=== PATIENT | male | born 1960 | race Caucasian/White ===

== ENCOUNTER 2017-08-15 14:44 | Emergency (ER) | payer OTHER ==
[2017-08-15 14:53] VITALS: TEMP 97.7
[2017-08-15] MEDS ORDERED: TDAP ADULT 0.5 ML INJ (BOOSTRIX) IM ONE (16:45)
--- NOTE | 2017-08-15 17:03 | EDPHY ---
H & P Stated Complaint: Multiple lacerations to left hand Source: Patient Exam Limitations: No limitations - Personal History Current Tetanus/Diphtheria Vaccine: No Current Tetanus Diphtheria and Acellular Pertussis (TDAP): No - Medical/Surgical History Hx Asthma: No Hx Chronic Respiratory Disease: No Hx Diabetes: No Hx Cardiac Disease: No Hx Renal Disease: No Hx Cirrhosis: No Hx Alcoholism: No Hx HIV/AIDS: No Hx Splenectomy or Spleen Trauma: No Other PMH: PMH: a-fib w/ ablation. - Social History Smoking Status: Never smoked Time Seen by Provider: 08/15/17 17:03 HPI/ROS: HPI: This is a 57-year-old male presents with Chief Complaint: Multiple lacerations to left hand Location: Left hand Quality: Laceration Duration: Prior to arrival Signs and Symptoms: + bleeding, no radiation, no numbness, no weakness, no tingling, no decreased range of motion, + swelling, + pain Timing: Acute Severity: 05/08 Context: Patient is right-hand dominant, was at work trying to clean a machine when he stuck his hand inside and the knife struck his left hand several times injuring several of his fingers. He felt immediate pain and started to bleed. He applied direct pressure which mildly relieve the bleeding. He is unsure of his last tetanus shot. He denies any paresthesias, change of skin color. He does report that there is increased pain with any use of his left hand and movement. Patient has a history of AFib with ablation and is not taking any blood thinners. Modifying Factors: Direct pressure Comment: ROS: see HPI Constitutional: No fever, no chills, no weight loss Eyes: No blurred vision Respiratory: No shortness of breath, no cough Cardiovascular: No chest pain Gastrointestinal: No nausea, no vomiting no diarrhea Genitourinary: No dysuria Extremities: No myalgias Neurologic: No weakness, no numbness Skin: No rashes Hematologic: No bruising, no bleeding MEDICAL/SURGICAL/SOCIAL HISTORY: Medical history: AFib Surgical history: Denies Social history: Employed CONSTITUTIONAL: Adult white male, awake and alert, no obvious distress HEENT: Atraumatic and normocephalic, PERRL, EOMI. Tympanic membranes clear. Oropharynx clear, no exudate and moist pink mucosa. Airway patent. No lymphadenopathy. No meningismus. Cardiovascular: Normal S1/S2, regular rate, regular rhythm, without murmur rub or gallop. PULMONARY/CHEST: Symmetrical and nontender. Clear to auscultation bilaterally. Good air movement. No accessory muscle usage. ABDOMEN: Soft, nondistended, nontender, no rebound, no guarding, no peritoneal signs, no masses or organomegaly. No CVAT. EXTREMITIES: 2/2 radial pulses, left hand: Left thumb shows 1 cm vertical incision, 2nd digit shows 2.5 cm v-shaped incision, 3rd digit shows 3.5 cm irregular complex avulsed type laceration. DIP/PIP flexion and extension and light touch sensation intact. strength 5/5, no deformities, no clubbing, no cyanosis or edema. NEUROLOGICAL: no focal neuro deficits. GCS 15. SKIN: Warm and dry, no erythema. no rash. Good capillary refill. (Sujata De Dios) Constitutional: Initial Vital Signs Temperature (C) 36.5 C 08/15/17 14:49 Heart Rate 89 08/15/17 14:49 Respiratory Rate 18 08/15/17 14:49 Blood Pressure 157/103 H 08/15/17 14:49 O2 Sat (%) 96 08/15/17 14:49 O2 Delivery Mode Room Air Allergies/Adverse Reactions: Penicillins Allergy (Verified 08/15/17 14:53) Home Medications: Medication Instructions Recorded NK [No Known Home Meds] 08/15/17 Medical Decision Making Procedures: Procedure: Laceration repair. Verbal consent was obtained from the patient. The 1.5 cm laceration on the left thumb was anesthetized in the usual fashion. The wound was irrigated, draped and explored to its base with a gloved finger. There were no deep structures involved. No tendon injury was identified. The wound was repaired with #3, 6 0 Prolene in simple interrupted pattern. Good hemostasis was achieved clean sterile dressing applied. The procedure was performed by myself. Procedure: Laceration repair. Verbal consent was obtained from the patient. The 2.5 cm v-shaped laceration on the left 2nd digit between the DI P and PIP joint was anesthetized in the usual fashion. The wound was irrigated, draped and explored to its base with a gloved finger. There were no deep structures involved. No tendon injury was identified. The wound was repaired with #9, 6 0 Prolene in simple interrupted pattern. Good hemostasis was achieved and clean sterile dressing applied. The procedure was performed by myself. Procedure: Laceration repair. Verbal consent was obtained from the patient. The 3.0 complex irregular avulsion type laceration on the distal aspect of the left 3rd phalanx was anesthetized in the usual fashion. The wound was irrigated, draped and explored to its base with a gloved finger. There were no deep structures involved. No tendon injury was identified. The wound was repaired with 12., 6 0 Prolene a simple interrupted pattern. Good hemostasis was achieved and clean sterile dressing applied. The procedure was performed by myself. (Sujata De Dios) ED Course/Re-evaluation: Tetanus booster given Reviewed hand x-ray via portable x-ray machine bed sign and no acute fracture, dislocation Lacerations were repaired using absorbable sutures 2nd- 3rd fingers were debbie-taped together and clean sterile dressing using Xeroform and Kerlix were applied to all 3 lacerations. No signs of neurovascular compromise/tenting of skin/compartment syndrome/ extremities and joints examined above and below area of concern and are neurovascularly intact. (Sujata De Dios) The patient was evaluated and managed by the physician assistant chief nursing officer. I have reviewed this chart and I agree with the findings and plan of care as documented , as indicated by my signature. I am the secondary supervising physician. ( Selena Álvarez) Differential Diagnosis: Differential diagnosis includes but is not limited to laceration, contusion, phalanx fracture, nerve injury, tendon injury. (Sujata De Dios) - Data Points Medications Given: Discontinued Medications Diphtheria/Tetanus/Acell Pertussis (Boostrix) 0.5 ml IM .ONCE ONE Stop: 08/15/17 16:46 Last Admin: 08/15/17 16:50 Dose: 0.5 ml Departure - Departure Disposition: Home, Routine, Self-Care Clinical Impression: Laceration of multiple sites of hand and fingers Condition: Good Instructions: Care For Your Stitches (ED), Finger Laceration (ED) Additional Instructions: Keep the dressing dry and in place for 48 hours. Keep the fingers debbie-taped until sutures removed in 7-10 days. Return to the emergency room in 7-10 days for suture removal. Take ibuprofen 600-800 mg every 6-8 hours with food as needed for pain and inflammation. Apply ice for 30 minutes at a time; 2-3 times per day for the next 1-2 days. Follow up with Hand surgery in 7-10 days at which time they will re-evaluate your situation. The x-rays obtained in the emergency department today demonstrate no evidence of an obvious fracture. Sometimes fractures are not obvious on the initial set of x-rays performed in the ED. For this reason, you should have repeat x-rays performed in 7-10 days if you are having any pain exclude the possibility of an occult fracture. Referrals: Maeve Vasquez MD [Primary Care Provider] - As per Instructions Mathieu Means MD [Medical Doctor] - As per Instructions Stand Alone Forms: Work Limited Duty
[2017-08-15 19:13] VITALS: BP 149/93; PULSE 75; RESP 14; O2SAT 92
== END 2017-08-24 08:08 | disposition home or self-care (01) ==
PROC: 0HQGXZZ Repair Left Hand Skin, External Approach (ICD-10-PCS; principal; 2017-08-15)
DX: S61.012A Laceration without foreign body of left thumb without damage to nail, initial encounter (principal); S61.211A Laceration without foreign body of left index finger without damage to nail, initial encounter; S61.213A Laceration without foreign body of left middle finger without damage to nail, initial encounter; Z23 Encounter for immunization; W26.0XXA Contact with knife, initial encounter; Y92.69 Other specified industrial and construction area as the place of occurrence of the external cause; Y99.0 Civilian activity done for income or pay; Y93.89 Activity, other specified
CPT/HCPCS: L3925